=== PATIENT | female | born 1990 | race Caucasian/White ===

== ENCOUNTER 2017-03-04 13:08 | Outpatient (CLI) | payer OTHER | END 2017-03-04 13:09 | disposition home or self-care (01) | LOC: DTY/OP 13:08 | PROVIDERS: ATTEND Surgery | DX: E66.01 Morbid (severe) obesity due to excess calories (principal) | CPT/HCPCS: 97802 ==

== ENCOUNTER 2017-10-06 23:55 | Emergency (ER) | payer BC ==
[2017-10-07] MEDS ORDERED: Metoclopramide HCl 10 MG/2 ML VIAL ONE (00:23)
[2017-10-07] MEDS ORDERED: diphenhydrAMINE 50 MG/ML VIAL ONE (00:23)
[2017-10-07 00:44] LABS: #Basophils 0.1 thou/uL (0.0-0.2); #Lymphocytes 3.6 thou/uL (1.20-3.40); #Monocytes 0.6 thou/uL (0.11-0.59); #Neutrophils 5.9 thou/uL (1.40-6.50); %Basophils 0.8 % (0.0-1.0); %Eosinophils 0.2 % (0.0-10.0); %Lymphocytes 35.1 % (21.0-51.0); %Monocytes 5.9 % (0.0-10.0); %Neutrophils 58.1 % (42.0-75.0); Hemoglobin 14.9 g/dL (12.0-16.0); Mean Corpuscular HGB CONC 34.4 g/dL (32.0-36.0); Mean Corpuscular Hemoglobin 31.1 pg (27.0-31.0); Mean Corpuscular Volume 90.4 fl (81.0-99.0); Mean Platelet Volume 7.6 fL (7.4-10.4); Platelet Count 160 thou/uL (130-400); RBC Distribution Width 11.7 % (11.5-14.5); Red Blood Cell (RBC) Count 4.79 mill/uL (4.20-5.40); White Blood Cell (WBC) Count 10.2 thou/uL (4.8-10.8)
[2017-10-07] MEDS ORDERED: Fentanyl 100 MCG/2 ML VIAL ONE (01:00)
[2017-10-07 01:08] LABS: ALT (SGPT) 9 U/L (8-55); AST (SGOT) 16 U/L (5-34); Albumin 4.3 g/dL (3.5-5.0); Alkaline Phosphatase 82 U/L (40-150); Anion Gap 13 mmol/L (10-20); BUN (Urea Nitrogen) 14 mg/dL (7.0-18.7); Bilirubin, Total 0.6 mg/dL (0.2-1.2); Calc. Creatinine Clearance 0 mL/min (70-130); Calcium 9.5 mg/dL (7.8-10.44); Carbon Dioxide 23 mmol/L (22-29); Chloride 108 mmol/L (98-107); Estimated GFR-MDRD 72; Globulin 2.9 g/dL (2.4-3.5); Glucose 133 mg/dL (70-105); Lipase 29 U/L (8-78); Potassium 3.7 mmol/L (3.5-5.1); Protein, Total 7.2 g/dL (6.0-8.3); Sodium 140 mmol/L (136-145)
[2017-10-07 02:35] LABS: BHCG - Serum Negative (NEGATIVE); Pregs Control Background? CLEAR/WHITE (CLR/WHITE); Pregs Control Bar Appear? YES (CONTROL BAR)
[2017-10-07 02:56] LABS: Bilirubin Negative (Negative); Blood, Urine Negative (Negative); Clarity CLEAR (Clear); Glucose, Urine (Dipstick) Negative (Negative); Leukocyte Negative (Negative); Nitrite Negative (Negative); Protein, Urine (Dipstick) Negative (Neg-Trace); Specific Gravity, Urine 1.041 (1.002-1.036)
[2017-10-07 02:58] LABS: Pregnancy Test - Urine (BHCG) Negative (Negative); Pregu Control Background? CLEAR/WHITE (CLR/WHITE); Pregu Control Bar Appear? YES (CONTROL BAR); Specific Gravity 1.041 (1.002-1.036)
[2017-10-07] MEDS ORDERED: HYDROcodone/Acetaminophen 5/325 mg Tablet ONE (03:11)
--- NOTE | 2017-10-07 09:04 | CT ---
PRELIMINARY REPORT/[facility]/EMERGENTY AFTER-HOURS PROCEDURE CT Abdomen and Pelvis With Intravenous Contrast EXAM DATE/TIME: Exam ordered 10/07/2017 1:50 AM CLINICAL HISTORY: 27 years old, female; Pain; Abdominal pain; Patient HX: F27 presents to ed for abdominal pain. Pt rep orts the pain began in her mid back and epigastrium earlier today and now has vomited x1. Hx gastric sleeve last april with dr. Roblero, no complications. TECHNIQUE: Axial computed tomography images of the abdomen and pelvis with intravenous contrast. Coronal reforma tted images were created and reviewed. COMPARISON: No relevant prior studies available. FINDINGS: Lung bases: Normal. No mass. No consolidation. ABDOMEN: Liver: There are no focal liver lesions identified. Gallbladder and bile ducts: The gallbladder is normal. There is no evidence of biliary ductal dilatio n. No calcified stones. Pancreas: The pancreas appears normal. No ductal dilation. Spleen: The spleen is normal. Adrenals: The adrenal glands are normal. Kidneys and ureters: The kidneys appear normal. No hydronephrosis. Stomach and bowel: Patient is post gastric sleeve surgery without CT evidence of complication. The du odenum is unremarkable. The colon is normal. No obstruction. No mucosal thickening. PELVIS: Appendix: A normal appendix is identified. Bladder: The bladder is normal. Reproductive: The uterus is normal. There is a 2.4 cm RIGHT ovarian cyst. ABDOMEN and PELVIS: Intraperitoneal space: Normal. No free air. No significant fluid collection. Bones/joints: No acute fracture. No dislocation. Soft tissues: Normal. Vasculature: Normal. No abdominal aortic aneurysm. Lymph nodes: Normal. No enlarged lymph nodes. Tubes, lines and devices: An intrauterine device is present. IMPRESSION: No acute abdominal pelvic pathology. Thank you for allowing us to participate in the care of your patient. Dictated and Authenticated by: Ish Johnson MD 10/07/2017 2:12 AM Central Time ([place] & [place]) FINAL REPORT CT ABDOMEN AND PELVIS WITH ORAL AND IV CONTRAST: Date: 10/07/17 FINDINGS/IMPRESSION: I agree with the preliminary report given by Brianne. POS: [facility]
[2017-10-07] MEDS ORDERED: ISOVUE-370 76%-LOCM 1 ML ONE (10:57)
[2017-10-07] MEDS ORDERED: Iopamidol 370 76% 50 ML VIAL FS ONE (10:57)
== END 2017-10-07 03:29 | disposition home or self-care (01) ==
LOC: ERS 23:55
DX: N83.201 Unspecified ovarian cyst, right side (principal)
CPT/HCPCS: 36415; 74177; 80053; 81003; 81025; 83690; 84703; 85025; 96365; 96375; J1200; J2765; J3010

== ENCOUNTER 2017-11-28 06:43 | Outpatient (CLI) | payer BC | END 2017-11-28 06:44 | disposition home or self-care (01) | LOC: BICULT 06:43 | PROVIDERS: ATTEND Surgery | DX: R10.11 Right upper quadrant pain (principal); E66.9 Obesity, unspecified; K80.20 Calculus of gallbladder without cholecystitis without obstruction | CPT/HCPCS: 76705 ==

== ENCOUNTER 2017-12-11 08:51 | Outpatient (CLI) | payer BC ==
[2017-12-11 09:55] LABS: #Lymphocytes 2.3 thou/uL (1.20-3.40); #Monocytes 0.6 thou/uL (0.11-0.59); %Basophils 0.6 % (0.0-1.0); %Eosinophils 0.1 % (0.0-10.0); %Lymphocytes 28.4 % (21.0-51.0); %Monocytes 7.3 % (0.0-10.0); %Neutrophils 63.6 % (42.0-75.0); Hemoglobin 14.6 g/dL (12.0-16.0); Mean Corpuscular HGB CONC 34.8 g/dL (32.0-36.0); Mean Corpuscular Hemoglobin 31.7 pg (27.0-31.0); Mean Corpuscular Volume 91.2 fL (78.0-98.0); Mean Platelet Volume 7.5 fL (7.4-10.4); Platelet Count 172 thou/uL (130-400); RBC Distribution Width 11.4 % (11.5-14.5); White Blood Cell (WBC) Count 7.9 thou/uL (4.8-10.8)
[2017-12-11 10:05] LABS: BHCG - Serum Negative (NEGATIVE); Pregs Control Background? CLEAR/WHITE (CLR/WHITE); Pregs Control Bar Appear? YES (CONTROL BAR)
[2017-12-11 10:19] LABS: ALT (SGPT) 13 U/L (8-55); AST (SGOT) 13 U/L (5-34); Albumin 4.3 g/dL (3.5-5.0); Alkaline Phosphatase 79 U/L (40-150); Anion Gap 12 mmol/L (10-20); BUN (Urea Nitrogen) 13 mg/dL (7.0-18.7); Bilirubin, Total 0.7 mg/dL (0.2-1.2); Calc. Creatinine Clearance 0 mL/min (70-130); Calcium 9.5 mg/dL (7.8-10.44); Carbon Dioxide 24 mmol/L (22-29); Chloride 106 mmol/L (98-107); Estimated GFR-MDRD 85; Globulin 3.1 g/dL (2.4-3.5); Glucose 94 mg/dL (70-105); Potassium 3.9 mmol/L (3.5-5.1); Protein, Total 7.4 g/dL (6.0-8.3); Sodium 138 mmol/L (136-145)
[2017-12-11 10:20] LABS: ALT (SGPT) 12 U/L (8-55); AST (SGOT) 12 U/L (5-34); Albumin 4.4 g/dL (3.5-5.0); Alkaline Phosphatase 80 U/L (40-150); Bilirubin, Direct 0.2 mg/dL (0.1-0.3); Bilirubin, Total 0.6 mg/dL (0.2-1.2); Protein, Total 7.4 g/dL (6.0-8.3)
== END 2017-12-11 08:52 | disposition home or self-care (01) ==
LOC: LABBT 08:51
PROVIDERS: ATTEND Surgery
DX: Z01.812 Encounter for preprocedural laboratory examination (principal); K80.20 Calculus of gallbladder without cholecystitis without obstruction
CPT/HCPCS: 80053; 84703; 85025

== ENCOUNTER 2017-12-22 06:53 | Day surgery (SDC) | payer BC ==
[2017-12-11 09:15] VITALS: BMI 32.5
[2017-12-22] MEDS ORDERED: Sodium Chloride 0.9% 100 ML ONE (07:16)
[2017-12-22] MEDS ORDERED: cefOXitin 2 GM VIAL ONE (07:16)
[2017-12-22] MEDS ORDERED: Midazolam HCl 2 mg/2 ml Vial ONE (08:16)
--- NOTE | 2017-12-22 08:30 | HP ---
CHIEF COMPLAINT: Right upper quadrant abdominal pain. HISTORY: The patient is a 27-year-old female who has recently undergone sleeve gastrectomy, has lost significant weight. She is starting to have right upper quadrant pain radiating to the back, associ ated with nausea. She went to the emergency room. The CT was negative, but subsequently an ultrasou nd showed multiple cholelithiasis. She is here for laparoscopic cholecystectomy. PAST MEDICAL HISTORY: Depression, HPV, gastroesophageal reflux. PAST SURGICAL HISTORY: She has had a sleeve gastrectomy. MEDICATIONS: Multivitamins, Prilosec, tramadol. ALLERGIES: She has allergies to TDAP, VARICELLA VACCINE and ____. FAMILY HISTORY: Both parents are alive in good health. SOCIAL HISTORY: She is a medical student. No tobacco. Occasional alcohol. PHYSICAL EXAMINATION: VITAL SIGNS: Height 64 inches, weight 195, body mass index 33.47, blood pressure 134/81, pulse 69. GENERAL: Well-developed, well-nourished female in no apparent distress. HEENT: Unremarkable. LUNGS: Clear. HEART: Regular rate and rhythm. ABDOMEN: Soft, nontender, no palpable masses or hernias. EXTREMITIES: Unremarkable. ASSESSMENT: Symptomatic cholelithiasis. PLAN: Laparoscopic cholecystectomy. CONSENT: I discussed the planned procedure as well as risk of bleeding, infection, injury to bile du ct, injury to bowel, need to open. She understands and gives informed consent.
[2017-12-22] MEDS ORDERED: Bupivacaine/Epinephrine 0.25% 30 ML VIAL ONE (08:41)
[2017-12-22] MEDS ORDERED: Fentanyl 100 MCG/2 ML VIAL ONE ×3 (08:47→11:05)
--- NOTE | 2017-12-22 10:09 | OP ---
PREOPERATIVE DIAGNOSIS: Symptomatic cholelithiasis. SURGEON: Low Roblero M.D. PROCEDURE PERFORMED: Laparoscopic cholecystectomy. INDICATIONS: This is a 27-year-old female, who has been having episodic right upper quadrant pain, r adiating to the back, associated with nausea. Ultrasound showed cholelithiasis. FINDINGS: She had adhesions to the gallbladder suggestive of previous inflammation. She had a small caliber cystic duct. PROCEDURE IN DETAIL: After informed consent was obtained, the patient was taken to the operating renay m and given general endotracheal anesthesia. She was placed in supine position. Her abdomen was pre pped and draped in usual fashion. Local anesthesia infiltrated subcutaneously and deep. A subumbili blu incision was performed. The subcu divided sharply. The fascia grasped and two stay sutures of 0 Vicryl placed to either side of midline. Midline incised. Digital palpation revealed no local adhe sions. A blunt 10-12 mm trocar inserted. Pneumoperitoneum was created to a pressure of 15 mmHg. A 0-degree laparoscope inserted under direct vision, and three 5 mm ports were placed subcostally. The gallbladder grasped and advanced superiorly. There were adhesions, which were lysed sharply. This peritoneum opened and the cystic duct artery in critical view dissected out. The artery and duct wer e triply ligated with Hemoclips and divided. The gallbladder was removed from its fossa utilizing el ectrocautery, removed from the abdomen through the umbilical port. Hemostasis was assured. Trocars and retractors removed. The fascia closed with interrupted 0 Vicryl suture and the skin closed with interrupted 4-0 Rapide. Steri-Strips applied. Sterile bandages applied. The patient tolerated the procedure well and was transferred to recovery in good condition. Sponge and needle count verified c orrect x2.
[2017-12-22] MEDS ORDERED: Lidocaine 1% PF 5 ML VIAL ONE ×2 (11:43)
[2017-12-22] MEDS ORDERED: Ketorolac Tromethamine 30 MG/ML VIAL ONE (11:43)
[2017-12-22] MEDS ORDERED: Ondansetron HCl/PF 4 MG/2 ML Vial ONE (11:43)
[2017-12-22] MEDS ORDERED: Glycopyrrolate 0.2 MG/ML 5 ML SYRINGE ONE (11:43)
[2017-12-22] MEDS ORDERED: Dexamethasone 20 MG/5 ML VIAL ONE (11:43)
[2017-12-22] MEDS ORDERED: PROPOFOL 200 MG/20 ML VIAL ONE (11:43)
[2017-12-22] MEDS ORDERED: Morphine 4 MG/ML VIAL ONE (11:46)
[2017-12-22] MEDS ORDERED: Promethazine HCl 25 MG/ML VIAL ONE (12:12)
[2017-12-22] MEDS ORDERED: HYDROcodone/Acetaminophen 5/325 mg Tablet ONE (13:00)
== END 2017-12-22 13:30 | disposition home or self-care (01) ==
LOC: SDC 06:53
PROVIDERS: ATTEND Surgery
PROC: 0FT44ZZ Resection of Gallbladder, Percutaneous Endoscopic Approach (ICD-10-PCS; principal; 2017-12-22)
DX: K80.10 Calculus of gallbladder with chronic cholecystitis without obstruction (principal); F32.9 Major depressive disorder, single episode, unspecified; K21.9 Gastro-esophageal reflux disease without esophagitis; Z88.7 Allergy status to serum and vaccine; Z79.899 Other long term (current) drug therapy
CPT/HCPCS: 88304; 96374; 96375; J0694; J1100; J1885; J2001; J2250; J2270; J2405; J2550; J2704; J3010; J7050